=== PATIENT | female | born 1985 | race Caucasian/White ===

== ENCOUNTER 2018-03-20 20:35 | Emergency (ER) | payer OTHER ==
[~2018-03-20] VITALS: Ht 157.5 cm; Wt 74.8 kg
[~2018-03-20 20:35] MED LIST: GLUCOPHAGE XR500 MG PO; GLUCOTROL XL5 MG PO; IBUPROFEN 200200 M1 PO; NAPROSYN500 MG PO; NORCO 5-325 TA1 EACH PO; NORFLEX100 MG PO; PROVENTIL HFA6.7 G1 INH; TUSSIONEX PENN473 ML PO
[2018-03-20] MEDS ORDERED: METFORMIN HCL500 MG PO (21:25)
[2018-03-20] MEDS ORDERED: TRAZODONE HCL100 MG PO (21:26)
[2018-03-20] MEDS ORDERED: IBUPROFEN 800800 MG PO (21:30)
[2018-03-20] MEDS ORDERED: NORFLEX100 MG PO (21:30)
[2018-03-20] MEDS ORDERED: PREDNISONE 20 M20 MG PO (21:30)
[2018-03-20 22:17] VITALS: BP 100/43
== END 2018-03-20 22:19 | disposition home or self-care (01) ==
LOC: ER 20:35
DX: M54.42 Lumbago with sciatica, left side (principal); E05.00 Thyrotoxicosis with diffuse goiter without thyrotoxic crisis or storm; Z88.5 Allergy status to narcotic agent; Z88.6 Allergy status to analgesic agent